=== PATIENT | female | born 1950 | race Caucasian/White ===

== ENCOUNTER → 2018-06-21 | Outpatient (CLI) | payer MEDICARE ==
[~2018-06-21] VITALS: Ht 157.5 cm; Wt 68.0 kg
[~2018-06-21] MED LIST: ACCUNEB0.63 MG/3 IH; ACCUNEB1.25 MG/3 IH; ASPIRIN EC81 M1; ASPIRIN81 M2 PO; BACTRIM DS TAB1 EACH PO; COMBIVENT INH; COZAAR 25 MG TA25 M1 PO; DEXAMETHASONE0.75 MG PO; DUONEB 2.5-0.5 M3 ML INH; E-MYCIN250 MG PO; IBUPROFEN 200200 M1 PO; IRON325; KEFLEX500 M1 PO; LASIX 20 MG TAB20 MG PO; LEVAQUIN 500 M500 M2 PO; LEVAQUIN 500 M500 M4 PO; LISINOPRIL2.5 MG PO; LOPRESSOR25 PO; METOPROLOL SUCC50 MG PO; NEBULIZER MISCELL; NICODERM CQ1 EAC1 TD; NITROGLYCERIN0.4 MG SL; NITROGLYCERIN0.4 MG SUBLING; NOHOMEMEDICATIONS; NORCO 5-325 TA1 EACH PO; PAIN & FEVER325 MG PO; PERCOCET 5-3251 EACH; PERCOCET PO; PHISOHEX148 ML TP; PLAVIX 75 MG TA75 MG PO; PREDNISONE 10 M10 M1 PO; PREDNISONE 10 M10 MG PO; PREDNISONE 20 M20 MG PO; PREDNISONE50 MG PO; PROAIR HFA8.5 GM INH; PROTONIX40 M1 PO; SIMVASTATIN40 MG PO; SINGULAIR 10 MG10 MG PO; TESSALON PERLE100 MG PO; TOPROL XL25 MG PO; TRAZODONE HCL50 MG PO; TUMS PO; TYLENOL325 MG PO; ZOFRAN4 MG PO; ZPAK PO
[2018-06-21 09:41] VITALS: BP 158/71
== END | disposition home or self-care (01) ==
LOC: M.INT 09:12
DX: K55.1 Chronic vascular disorders of intestine (principal); I70.1 Atherosclerosis of renal artery; I11.0 Hypertensive heart disease with heart failure; I25.10 Atherosclerotic heart disease of native coronary artery without angina pectoris; I50.9 Heart failure, unspecified; J44.1 Chronic obstructive pulmonary disease with (acute) exacerbation; F17.210 Nicotine dependence, cigarettes, uncomplicated; Z87.440 Personal history of urinary (tract) infections; Z88.6 Allergy status to analgesic agent; Z79.899 Other long term (current) drug therapy; Z79.82 Long term (current) use of aspirin

== ENCOUNTER 2018-07-04 08:20 | Observation (INO) | payer MEDICARE ==
[2018-07-04] VITALS (10 sets, daily range): BP systolic 91–138; BP diastolic 46–80
[~2018-07-04] VITALS: Ht 157.5 cm; Wt 70.4 kg
[2018-07-04 09:41] LABS: CALCIUM 9.3 mg/dL (8.5-10.1); CREATININE 0.9 mg/dL (0.6-1.3); POTASSIUM 4.1 mmol/L (3.5-5.1)
[2018-07-04 09:45] LABS: ALBUMIN 3.4 g/dL (3.4-5.0); TOTAL BILIRUBIN 0.5 mg/dL (<0.1-1.0); TOTAL PROTEIN 6.6 g/dL (6.4-8.2)
[2018-07-04 10:01] LABS: HEMATOCRIT 46.6 % (37.0-47.0); HEMOGLOBIN 15.5 gm/dL (12.0-15.0); MCH 29.5 pg (26.0-34.0); MCHC 33.3 g/dL (28.0-37.0); MCV 88.7 fL (80.0-100.0); MPV 9.3 fl. (7.2-11.1); RBC 5.26 mil/uL (4.20-5.00); RDW-CV 14.6 % (10.5-14.5); WBC 7.1 thou/uL (4.0-11.0)
[2018-07-04] MEDS ORDERED: LOPRESSOR25 PO (15:37)
[2018-07-04] MEDS ORDERED: XANAX 0.25 MG0.25 MG PO (18:18)
[2018-07-04 18:49] LABS: HEMATOCRIT 42.8 % (37.0-47.0); HEMOGLOBIN 13.9 gm/dL (12.0-15.0)
--- NOTE | 2018-07-04 19:08 | NUR ---
PATIENT ARRIVED FROM IR AT 1730. PATIENT SETTLED TO ROOM. HISTORY, ASSESSMENT AND VITALS COMPLETED AND DOCUMENTED. PATIENT DENIES ANY PAIN. GROIN AND WRIST SITESSOFT, DRY WITH NO BLEEDING NOTED. PATIENT DENIES ANY NAUSEA AND TOLERATING DIET. PATIENT DENIES ANY NEEDS AT THIS TIME. CALL LIGHT WITHIN REACH. WILL CONTINUE TO MONITOR.
[2018-07-05 00:36] LABS: HEMATOCRIT 37.5 % (37.0-47.0); HEMOGLOBIN 12.6 gm/dL (12.0-15.0)
[2018-07-05 05:32] LABS: HEMATOCRIT 36.6 % (37.0-47.0); HEMOGLOBIN 12.2 gm/dL (12.0-15.0)
--- NOTE | 2018-07-05 05:44 | NUR ---
PT SLEPT ON AND OFF THIS SHIFT. VISITORS REMAINED AT BEDSIDE ALL NIGHT. DRESSING SITES REMAINED C/D/I, NO SIGNS OF BLEEDING. NO REPORTS OF PAIN. IV PATENT, FLUIDS INFUSING. WILL CONTINUE WITH PLAN OF CARE.
[2018-07-05 08:00] VITALS: BP 121/77
[2018-07-05 12:25] LABS: HEMATOCRIT 41.4 % (37.0-47.0); HEMOGLOBIN 13.7 gm/dL (12.0-15.0)
[2018-07-05 13:39] VITALS: BP 121/77
--- NOTE | 2018-07-05 14:01 | NUR ---
DISCHARGE NOTE - SON WAS VERY ADAMENT AND IRRITATED THAT DR. MONTANEZ HAS NOT ROUNDED YET. SON ANGERY AND FRUSTATED. REASSURED. INSTRUCTIONS REVIEWED WITH DTR AND PT. NO QUESTIONS. IV REMOVED WITHOUT DIFFICULTY. ALL BELONGINGS SENT C PT.
== END 2018-07-05 14:00 | disposition home or self-care (01) ==
LOC: M.INT 08:20 → M.TBA-ER 17:20 → M.3W 17:20
PROVIDERS: Radiology Diagnostic Radiology; ADMIT Internal Medicine
DX: K55.1 Chronic vascular disorders of intestine (principal); I70.1 Atherosclerosis of renal artery; I25.10 Atherosclerotic heart disease of native coronary artery without angina pectoris; J44.9 Chronic obstructive pulmonary disease, unspecified; I11.0 Hypertensive heart disease with heart failure; I50.9 Heart failure, unspecified; N39.0 Urinary tract infection, site not specified; Z72.0 Tobacco use; R11.10 Vomiting, unspecified; Z79.82 Long term (current) use of aspirin; Z79.899 Other long term (current) drug therapy

== ENCOUNTER 2018-09-07 16:47 | Emergency (ER) | payer MEDICARE ==
[~2018-09-07] VITALS: Ht 157.5 cm; Wt 63.5 kg
[~2018-09-07 16:47] MED LIST changes: +XANAX 0.25 MG0.25 MG PO
[2018-09-07 17:55] LABS: ABSOLUTE BASOPHILS 0.1 thou/uL (0.0-0.2); ABSOLUTE EOSINOPHILS 0.5 thou/uL (0.0-0.7); ABSOLUTE LYMPHOCYTES 2.5 thou/uL (0.8-5.3); ABSOLUTE MONOCYTES 0.7 thou/uL (0.0-1.2); ABSOLUTE NEUTROPHILS 4.5 thou/uL (1.6-8.1); BASOPHILS 1.1 %; EOSINOPHILS 5.6 %; HEMATOCRIT 42.4 % (37.0-47.0); HEMOGLOBIN 14.4 gm/dL (12.0-15.0); LYMPHOCYTES 30.3 %; MCV 88.3 fL (80.0-100.0); MONOCYTES 8.1 %; MPV 8.4 fl. (7.2-11.1); NUCLEATED RBCS 0 /100WBC; PLATELET COUNT* 190 thou/uL (150-400); POLYS 54.9 %; RDW-CV 14.2 % (10.5-14.5); WBC 8.1 thou/uL (4.0-11.0)
[2018-09-07 18:07] LABS: URINE BILIRUBIN NEGATIVE (Negative); URINE BLOOD NEGATIVE (Negative); URINE CLARITY CLEAR; URINE COLOR YELLOW; URINE GLUCOSE-RANDOM NEGATIVE (Negative); URINE KETONES NEGATIVE (Negative); URINE LEUKOCYTES-REFLEX NEGATIVE (Negative); URINE NITRITE-REFLEX NEGATIVE (Negative); URINE PROTEIN NEGATIVE (Negative); URINE UROBILINOGEN 0.2 E.U./dl (0.2-1.0)
[2018-09-07 18:14] LABS: ALBUMIN 3.5 g/dL (3.4-5.0); ALKALINE PHOSPHATASE 79 U/L (46-116); ANION GAP 7 mmol/L (7-16); BUN 17 mg/dL (7-18); CALCIUM 9.1 mg/dL (8.5-10.1); CHLORIDE 102 mmol/L (98-107); CO2 29 mmol/L (21-32); CREATININE 0.9 mg/dL (0.6-1.3); GLUCOSE 104 mg/dL (70-99); POTASSIUM 3.8 mmol/L (3.5-5.1); SGOT 14 U/L (15-37); SGPT 13 U/L (30-65); SODIUM 138 mmol/L (136-145); TOTAL BILIRUBIN 0.2 mg/dL (<0.1-1.0); TOTAL PROTEIN 6.7 g/dL (6.4-8.2); TROPONIN-I LEVEL <0.06 ng/mL (<0.06)
[2018-09-07 20:29] VITALS: BP 149/86
--- NOTE | 2018-09-08 12:14 | EKG ---
[place] [address] ELECTROCARDIOGRAM REPORT Name: SAMANTHANEY Room: [facility]#: [id number] Admission: 09/07/18 Attend Phys: Discharge: 09/07/18 Date of : 46 Report #: [id number] THIS REPORT FOR: //name// 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 : 1950 Requested By: Hayley Forrest Order Number: [id number] MD: Cihto Gould Measurements Intervals [place] Rate: 88 P: 34 GA: 81 QRS: 26 QRSD: 103 T: 70 QT: 373 QTc: 452 Interpretive Statements Sinus rhythm Short GA interval Low voltage, precordial leads Nonspecific T abnormalities, anterior leads Compared to ECG 05/28/2017 03:03:52 Short GA interval now present Low QRS voltage now present T-wave abnormality now present Electronically Signed On 09-08-2018 12:14:43 CDT by Chito Gould [email or web address] <ELECTRONICALLY SIGNED> By: Chito Gould MD, FACC 09/08/18 1214 1714 1714 Chito Gould MD, FAC /EPI
== END 2018-09-07 20:32 | disposition home or self-care (01) ==
LOC: M.ERS 16:47
PROVIDERS: Nurse Practitioner Family
DX: R42 Dizziness and giddiness (principal); I10 Essential (primary) hypertension; F41.9 Anxiety disorder, unspecified; E78.5 Hyperlipidemia, unspecified; J44.9 Chronic obstructive pulmonary disease, unspecified; K21.9 Gastro-esophageal reflux disease without esophagitis; I25.810 Atherosclerosis of coronary artery bypass graft(s) without angina pectoris; F17.210 Nicotine dependence, cigarettes, uncomplicated; Z88.5 Allergy status to narcotic agent

== ENCOUNTER 2018-09-21 00:30 | Emergency (ER) | payer MEDICARE ==
[~2018-09-21] VITALS: Ht 215.9 cm; Wt 65.3 kg
[2018-09-21 01:02] LABS: ABSOLUTE BASOPHILS 0.1 thou/uL (0.0-0.2); ABSOLUTE EOSINOPHILS 0.5 thou/uL (0.0-0.7); ABSOLUTE MONOCYTES 0.7 thou/uL (0.0-1.2); ABSOLUTE NEUTROPHILS 3.8 thou/uL (1.6-8.1); BASOPHILS 0.8 %; EOSINOPHILS 6.6 %; HEMATOCRIT 43.7 % (37.0-47.0); HEMOGLOBIN 14.9 gm/dL (12.0-15.0); MCH 30.2 pg (26.0-34.0); MCV 88.9 fL (80.0-100.0); MONOCYTES 8.8 %; MPV 8.7 fl. (7.2-11.1); NUCLEATED RBCS 0 /100WBC; PLATELET COUNT* 178 thou/uL (150-400); POLYS 46.8 %; RBC 4.92 mil/uL (4.20-5.00); RDW-CV 13.8 % (10.5-14.5); WBC 8.1 thou/uL (4.0-11.0)
[2018-09-21 01:04] LABS: CALCIUM 9.3 mg/dL (8.5-10.1); CREATININE 0.8 mg/dL (0.6-1.3); POTASSIUM 4.3 mmol/L (3.5-5.1)
[2018-09-21 05:39] LABS: URINE BILIRUBIN NEGATIVE (Negative); URINE BLOOD NEGATIVE (Negative); URINE CLARITY CLEAR; URINE COLOR YELLOW; URINE GLUCOSE-RANDOM NEGATIVE (Negative); URINE KETONES NEGATIVE (Negative); URINE LEUKOCYTES-REFLEX NEGATIVE (Negative); URINE NITRITE-REFLEX NEGATIVE (Negative); URINE PROTEIN NEGATIVE (Negative); URINE SPECIFIC GRAVITY <= 1.005 (1.005-1.030); URINE UROBILINOGEN 0.2 E.U./dl (0.2-1.0)
[2018-09-21 06:37] VITALS: BP 110/57
--- NOTE | 2018-09-21 10:50 | EKG ---
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
--- NOTE | 2018-09-21 10:52 | EKG ---
[place] [address] ELECTROCARDIOGRAM REPORT Name: SAMANTHANEY SPEARS Room: [facility]#: [id number] Admission: 09/21/18 Attend Phys: Discharge: 09/21/18 Date of : 46 Report #: [id number] THIS REPORT FOR: //name// [facility] ED Test Date: 2018-09-21 Test Time: 03:42:53 Pat Name: NEY SINGH Department: Room: Gender: F Clinical Specialist Vascular: MARY : 1950 Requested By: Yaz Jo Order Number: [id number] MD: Everett Lindo Measurements Intervals [place] Rate: 69 P: 73 SC: 88 QRS: 54 QRSD: 98 T: 79 QT: 422 QTc: 452 Interpretive Statements Sinus rhythm Short SC interval Borderline T abnormalities, anterior leads Electronically Signed On 09-21-2018 10:52:07 CDT by Everett Lindo [email or web address] <ELECTRONICALLY SIGNED> By: Everett Lindo MD, [facility] 09/21/18 1052 0342 0342 Everett Lindo MD, FACC /EPI
== END 2018-09-21 06:39 | disposition home or self-care (01) ==
LOC: M.ERS 00:30
PROVIDERS: Emergency Medicine
DX: R51 Headache (principal); F17.210 Nicotine dependence, cigarettes, uncomplicated; I10 Essential (primary) hypertension; I25.10 Atherosclerotic heart disease of native coronary artery without angina pectoris; E78.5 Hyperlipidemia, unspecified; K21.9 Gastro-esophageal reflux disease without esophagitis; J44.9 Chronic obstructive pulmonary disease, unspecified; I42.9 Cardiomyopathy, unspecified; F41.9 Anxiety disorder, unspecified; Z88.5 Allergy status to narcotic agent

== ENCOUNTER → 2018-10-01 | Outpatient (CLI) | payer MEDICARE | LOC: M.MRI 07:38 → M.ULTRA 10-04 10:30 → M.MRI 10-04 11:30 | DX: I65.23 Occlusion and stenosis of bilateral carotid arteries (principal); K55.1 Chronic vascular disorders of intestine; Z88.5 Allergy status to narcotic agent ==

== ENCOUNTER → 2018-11-06 | Outpatient (CLI) | payer MEDICARE | LOC: M.MRI 07:46 | DX: I70.0 Atherosclerosis of aorta (principal); K55.1 Chronic vascular disorders of intestine; I70.8 Atherosclerosis of other arteries; M47.816 Spondylosis without myelopathy or radiculopathy, lumbar region ==

== ENCOUNTER → 2018-12-16 | Outpatient (CLI) | payer MEDICARE ==
[~2018-12-16] VITALS: Ht 157.5 cm; Wt 62.6 kg
[~2018-12-16] MED LIST changes: +NORVASC5 MG PO; +PLAVIX 75 MG TA75 M1 PO
[2018-12-16 10:12] VITALS: BP 136/91
== END ==
LOC: M.INT 11-22 10:00
DX: R10.816 Epigastric abdominal tenderness (principal); I51.9 Heart disease, unspecified; F17.210 Nicotine dependence, cigarettes, uncomplicated; Z88.5 Allergy status to narcotic agent; Z79.82 Long term (current) use of aspirin; Z79.899 Other long term (current) drug therapy; Z95.818 Presence of other cardiac implants and grafts

== ENCOUNTER → 2019-01-30 | Outpatient (CLI) | payer MEDICARE ==
[2019-01-30 11:21] LABS: CALCIUM 9.5 mg/dL (8.5-10.1); CREATININE 0.8 mg/dL (0.6-1.3); POTASSIUM 4.1 mmol/L (3.5-5.1); TOTAL BILIRUBIN 0.5 mg/dL (<0.1-1.0); TOTAL PROTEIN 7.1 g/dL (6.4-8.2)
== END ==
LOC: M.LAB 10:30 → M.CT 11:30
PROVIDERS: Family Medicine
DX: K57.30 Diverticulosis of large intestine without perforation or abscess without bleeding (principal); I10 Essential (primary) hypertension; I70.1 Atherosclerosis of renal artery; D35.02 Benign neoplasm of left adrenal gland; D35.01 Benign neoplasm of right adrenal gland; Z90.49 Acquired absence of other specified parts of digestive tract; I77.1 Stricture of artery; Z95.5 Presence of coronary angioplasty implant and graft

== ENCOUNTER 2020-08-27 10:57 | Inpatient (IN) | payer MEDICARE ==
[~2020-08-27] VITALS: Ht 157.5 cm; Wt 68.0 kg
[2020-08-27] VITALS (11 sets, daily range): BP systolic 95–153; BP diastolic 56–96
[~2020-08-27 10:57] MED LIST changes: +LOPRESSOR50 PO
[2020-08-27] MEDS ORDERED: DICYCLOMINE HCL20 MG PO (11:10)
[2020-08-27] MEDS ORDERED: BENZONATATE200 MG PO (11:10)
[2020-08-27 11:30] LABS: ABSOLUTE LYMPHOCYTES 1.5 thou/uL (0.8-5.3); ABSOLUTE MONOCYTES 0.4 thou/uL (0.0-1.2); ABSOLUTE NEUTROPHILS 8.4 thou/uL (1.6-8.1); BASOPHILS 0.4 %; EOSINOPHILS 0.2 %; HEMATOCRIT 50.6 % (37.0-47.0); HEMOGLOBIN 16.9 gm/dL (12.0-15.0); LYMPHOCYTES 14.5 %; MCH 30.6 pg (26.0-34.0); MCHC 33.4 g/dL (28.0-37.0); MCV 91.7 fL (80.0-100.0); MONOCYTES 3.9 %; MPV 8.6 fl. (7.2-11.1); NUCLEATED RBCS 0 /100WBC; PLATELET COUNT* 211 thou/uL (150-400); RBC 5.52 mil/uL (4.20-5.00); RDW-CV 13.4 % (10.5-14.5); WBC 10.3 thou/uL (4.0-11.0)
[2020-08-27 11:42] LABS: APTT 25.1 Seconds (25.0-31.3); INR 0.9; PROTIME 10.1 Seconds (9.20-11.50)
[2020-08-27 11:45] LABS: CALCIUM 9.3 mg/dL (8.5-10.1); CREATININE 0.8 mg/dL (0.6-1.3); POTASSIUM 4.2 mmol/L (3.5-5.1)
[2020-08-27 11:55] LABS: ALBUMIN 3.5 g/dL (3.4-5.0); MAGNESIUM 2.2 mg/dL (1.8-2.4); TOTAL BILIRUBIN 0.3 mg/dL (<0.1-1.0); TOTAL PROTEIN 7.1 g/dL (6.4-8.2)
--- NOTE | 2020-08-27 15:04 | EKG ---
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
--- NOTE | 2020-08-27 20:12 | 2DMMODE ---
[place] [address] 2 D/M-MODE ECHOCARDIOGRAM Name: NEY SINGH Room: [address] IN .[place]ie.#: [id number] Admission: 08/27/20 Attend Phys: Jaz Zhao, Discharge: Date of : 46 Date of Service: 08/27/202011 Report #: [id number] THIS REPORT FOR: cc: Jack Escobar MD, Bruce D. MD Blick,Everett Chery MD [facility] ~ APPROVED REPORT Study performed: 08/27/2020 13:56:24 EXAM: Comprehensive 2D, Doppler, and color-flow Echocardiogram Patient Location: In-Patient Room #: er Status: routine BSA: 1.64 HR: 75 bpm BP: 143/72 mmHg Rhythm: NSR Other Information Study Quality: Good Indications Chest Pain 2D Dimensions IVSd: 11.47 (7-11mm) LVOT Diam: 17.15 (18-24mm) LVDd: 46.84 mm PWd: 8.06 (7-11mm) Ascending Ao: 28.33 (22-36mm) LVDs: 26.43 (25-40mm) Aortic Root: 28.40 mm Volumes Left Atrial Volume (Systole) LA ESV Index: 20.80 mL/m2 Aortic Valve AoV Peak Delonte.: 1.30 m/s AO Peak Gr.: 6.79 mmHg LVOT Max P.45 mmHg AO Mean Gr.: 3.32 mmHg LVOT Mean P.01 mmHg LVOT Max V: 1.05 m/s AO V2 VTI: 24.21 cm LVOT Mean V: 0.65 m/s BETITO (VTI): 2.10 cm2 LVOT V1 VTI: 22.03 [place] [address] 2 D/M-MODE ECHOCARDIOGRAM Name: NEY SINGH Room: [address] ..#: [id number] Admission: 08/27/20 Attend Phys: Jaz Zhao, Discharge: Date of : 46 Date of Service: 08/27/202011 Report #: [id number] Mitral Valve E/A Ratio: 0.96 MV Decel. Time: 256.29 ms MV E Max Delonte.: 1.05 m/s MV PHT: 74.32 ms MVA (PHT): 2.96 cm2 TDI E/Lateral E': 10.50 E/Medial E': 17.50 Medial E' Delonte.: 0.06 m/s Lateral E' Delonte.: 0.10 m/s Pulmonary Valve PV Peak Delonte.: 0.96 m/s PV Peak Gr.: 3.66 mmHg Tricuspid Valve RAP Estimate: 5.00 mmHg TR Peak Gr.: 25.11 mmHg RVSP: 30.00 mmHg PA Pressure: 30.00 mmHg Left Ventricle The left ventricle is normal size. severe hypokinesis noted of the base of the inferior wall There is normal left ventricular wall thickness. Left ventricular systolic function is normal. The left ventricular ejection fraction is within the normal range. LVEF is 55-60%. The left ventricular diastolic function is normal. Right Ventricle The right ventricle is normal size. The right ventricular systolic function is normal. Atria The left atrium size is normal. The right atrium size is normal. Aortic Valve The aortic valve is normal in structure. No aortic regurgitation is present. There is no aortic valvular stenosis. Mitral Valve The mitral valve is normal in structure. Mild mitral annular calcification. Mild mitral regurgitation. No evidence of mitral valve stenosis. Tricuspid Valve The tricuspid valve is [place] [address] 2 D/M-MODE ECHOCARDIOGRAM Name: NEY SINGH Room: [address] [place] [facility]#: [id number] Admission: 08/27/20 Attend Phys: Jaz Zhao, Discharge: Date of : 46 Date of Service: 08/27/202011 Report #: [id number] regurgitation. Borderline pulmonary hypertension. Pulmonic Valve The pulmonary valve is normal in structure. There is no pulmonic valvular regurgitation. Great Vessels The aortic root is normal in size. IVC is normal in size and collapses >50% with inspiration. Pericardium There is no pericardial effusion. <Conclusion> severe hypokinesis noted of the base of the inferior wall LVEF is 55-60%. Mild mitral regurgitation. <ELECTRONICALLY SIGNED> By: Everett Lindo MD, FACC 08/27/202011 11 11 Everett Lindo MD, FACC /INF
[2020-08-28 00:18] VITALS: BP 136/66
[2020-08-28 03:58] LABS: ABSOLUTE EOSINOPHILS 0.1 thou/uL (0.0-0.7); ABSOLUTE LYMPHOCYTES 2.6 thou/uL (0.8-5.3); ABSOLUTE MONOCYTES 0.9 thou/uL (0.0-1.2); ABSOLUTE NEUTROPHILS 6.2 thou/uL (1.6-8.1); BASOPHILS 0.3 %; EOSINOPHILS 1.5 %; HEMATOCRIT 42.1 % (37.0-47.0); LYMPHOCYTES 26.7 %; MCH 30.2 pg (26.0-34.0); MCHC 32.7 g/dL (28.0-37.0); MCV 92.3 fL (80.0-100.0); MONOCYTES 9.1 %; MPV 8.4 fl. (7.2-11.1); NUCLEATED RBCS 0 /100WBC; PLATELET COUNT* 179 thou/uL (150-400); POLYS 62.4 %; RBC 4.56 mil/uL (4.20-5.00); RDW-CV 13.6 % (10.5-14.5); WBC 9.9 thou/uL (4.0-11.0)
[2020-08-28 04:06] LABS: APTT 24.5 Seconds (25.0-31.3); INR 0.9; PROTIME 10.1 Seconds (9.20-11.50)
[2020-08-28 04:08] LABS: CALCIUM 8.9 mg/dL (8.5-10.1); CREATININE 0.8 mg/dL (0.6-1.3); POTASSIUM 4.4 mmol/L (3.5-5.1)
[2020-08-28 04:31] LABS: HEMOGLOBIN 13.8 gm/dL (12.0-15.0)
[2020-08-28 04:38] VITALS: BP 112/43
[2020-08-28 07:43] VITALS: BP 123/57
[2020-08-28] MEDS ORDERED: KEFLEX500 M1 PO (09:45)
[2020-08-28] MEDS ORDERED: PROTONIX40 M4 PO (09:45)
[2020-08-28 10:52] VITALS: BP 123/57
--- NOTE | 2020-08-28 11:33 | CARD ---
[address] [address] CARDIAC CATH REPORT Name: NEY SINGH Room: [address] IN [facility].#: [id number] Admission: 08/27/20 Attend Phys: Jaz Zhao MD Discharge: Date of : 46 Report #: [id number] THIS REPORT FOR: cc: Jack Escobar MD, Bruce D. MD ~ Everett Lindo MD [facility] APPROVED REPORT Study performed: 08/27/2020 14:35:16 Patient Details Patient Status: ED Room #: The patient is a 70 year-old female Event Personnel Everett Lindo Hub Borer, Ellen Cadet RN Real Estate Clerk, Shawn Clark SALESPERSON DRIVER Monitor, Ayla Chen RTR Scrub Procedures Performed Art Access - R femoral artery* Left Heart Cath w/or w/o Coronaries [id number] [facility] Hemostasis w/ Mynx Indication Abnormal ECG, Chest pain Risk Factors Arterial Hypertension, Cerebrovascular DiseasePeripheral Vascular Disease, Hypercholesterolemia, Coronary Artery Disease, Tobacco History () Previous Procedures/Diagnoses Previous CABG Procedure Narrative The patient was brought urgently to the Cardiac Catheterization Laboratory and was prepped and draped in a sterile manner. The right femoral was infiltrated with 2% Lidocaine subcutaneous anesthesia. The right femoral accessed via ultrasound guidance. A [place] 6 FR sheath was inserted into the right femoral artery. Coronary angiography was performed using coronary diagnostic catheters. The right coronary system was accessed and visualized with a JR4 catheter. The left coronary system was accessed and visualized with a JL4 catheter. The left ventricle was accessed and visualized with a PiG Tail catheter. Left ventricular/[place] [address] CARDIAC CATH REPORT Name: NEY SINGH Room: [address] IN [facility]#: [id number] Admission: 08/27/20 Attend Phys: Jaz Zhao MD Discharge: Date of : 46 Report #: [id number] via catheter pullback. Left ventriculogram was performed in MONTANO projection. An aortogram of the ascending aorta was performed. Closure device was deployed with a 6 Fr MynxGrip 6/7F. The patient tolerated the procedure well and there were no complications associated with the procedure. There was no hematoma. In an effort to perform angiogram of the BLAKE, an attempt was made to enter the left subclavian artery but was unsuccessful because of tortuosity of the aortic arch. Effort was made using a MTP catheter and a Wholey wire, but was unable to advance the wire into the subclavian artery. SVG to the RCA and the SVG to the circumflex was visualized using a JR4 catheter. Intraoperative Conscious Sedation Sedation start time: 151 Case end Time: 1601 Fentanyl 75 mcg Fluoro Time: 13.2 minutes Dose: DAP 93453 cGycm2 753 mGy Contrast Type and Amount: Visipaque 160 ml Coronary Angiography The patient's coronary anatomy is co- dominant. [place] Artery Percent Stenosis Grafts (Complete if Previous CABG=Yes: Percent Stenosis) SVG to the RCA appeared chronically occluded proximally. SVG to the second diagonal artery and a sequential jump graft to the second marginal branch of the circumlex appeared widely patent. Unable to enter the left subclavian artery, therefore the BLAKE graft was not visualized. Diagnostic Cath Left Main 0% stenosis LAD appeared chronically occluded after the takeoff of the second diagonal artery. Circumflex 90% ostial stenosis, and 100% mid chronic occlusion. Right Coronary chronic occlusion proximally, and the distal RCA filled by both bridging antegrade collaterals, and well as retrograde collaterals from the left coronary artery. Left Ventriculography The left ventricular ejection fraction is estimated to be 50-55%. Left ventricular wall motion abnormalities are present. There is 1+ mitral insufficiency. Severe hypokinesis of the base of the inferior wall. Aortic root injection showed only one [place] [address] CARDIAC CATH REPORT Name: SAMANTHANEY MINOR Room: [address] IN ..#: [id number] Admission: 08/27/20 Attend Phys: Jaz Zhao MD Discharge: Date of : 46 Report #: [id number] the ascending aorta, and no significant aortic insufficiency. Hemodynamics The aortic pressure is 112/43 mmHg with a mean of 69 mmHg. The left ventricular pressure is 101/10 mmHg with a mean of mmHg. The left ventricular end diastolic pressure is 14 mmHg. There was no gradient across the aortic valve upon pullback. Pullback from the left ventricle to the aorta revealed no gradient across the aortic valve. Conclusion 1. Chronic occlusion of the mid LAD, mid circumflex artery, and the proximal RCA 2. Patent SVG to the diagonal artery and circumflex artery. The SVG to the RCA appeared chronically occluded 3. Unable to enter the left subclavian artery, therefore the BLAKE was not visualized on this study. 4. LVEF 50-55% Recommendations Consider return to the catheterization laboratory in the future in an effort to visualize the BLAKE graft with access from the left radial artery. <ELECTRONICALLY SIGNED> By: Everett Lindo MD, FACC 08/28/20 1133 1133 1133Drowena Lindo MD, FACC /INF
[2020-08-28 11:37] VITALS: BP 97/49
--- NOTE | 2020-08-30 08:24 | CON ---
[facility] [address] [place] [address] CONSULTATION Name: NEY SINGH Room: [address] M.R.#: [id number] Admission: 08/27/20 Attend Phys: Jaz Zhao MD Discharge: 08/28/20 Date of : 46 Report #: [id number] THIS REPORT FOR: cc: Jack Escobar MD, Bruce D. MD ~ Everett Lindo MD [facility] DATE OF SERVICE: 08/27/2020 CARDIOLOGY CONSULTATION HISTORY OF PRESENT ILLNESS: The patient is a 70-year-old single white female who I was asked to see in the Emergency Room today after she complained of chest pain. The patient has an extensive past medical history. She apparently had triple vessel bypass surgery at [facility] in 2002. She has never required stenting. She does not know when her last stress test was. She also has a history of mesenteric ischemia and had a previous mesenteric artery stent placed by Interventional Radiology in the past. She continues to have occasional nausea. She is not very active at this time. However, she has had no recent chest pain until last night, she had an episode of chest pain in the last few minutes, resolved. Today, she again had an episode of chest pain, took a blood pressure is high. Her daughter brought her to the Emergency Room. She is admitted for further evaluation and treatment. She denied the pain related to food. She has had no recent fever or cough. She has had no bleeding. There is no radiation of the pain. She does get short of breath if she exerts herself. She has nebulizer treatments at home. She notes occasional episodes when her heart will flutter, but she has had no syncope. PAST MEDICAL HISTORY: Otherwise, she has had previous cholecystectomy, ankle surgery, shoulder surgery, wrist surgery. She has a history of hypertension, hyperlipidemia. No diabetes. MEDICATIONS: Include Xanax, Plavix, metoprolol, simvastatin, Desyrel. ALLERGIES: SHE HAS A PREVIOUS INTOLERANCE TO CODEINE. FAMILY HISTORY: Unknown. SOCIAL HISTORY: She is single, lives by herself in [place], [place]. Smokes half pack of cigarettes a day. No alcohol abuse. REVIEW OF SYSTEMS: She has had no history of stroke. She does have a history of carotid stenosis, previously was 70%. No history of GI bleeding, liver disease, kidney disease, cancer, psychiatric illness, [place] [address] CONSULTATION Name: NEY SINGH Room: [address]#: [id number] Admission: 08/27/20 Attend Phys: Jaz Zhao MD Discharge: 08/28/20 Date of : 46 Report #: [id number] PHYSICAL EXAMINATION: GENERAL: Revealed an elderly female, appeared in no acute distress. VITAL SIGNS: She had a blood pressure of 130/70, pulse 70. She is afebrile. HEENT: She was anicteric. Conjunctivae pink. Mucous membranes moist. NECK: Veins do not appear distended. No carotid bruits. Neck supple. CHEST: Revealed expiratory wheezes. CARDIOVASCULAR: Regular rate and rhythm without murmur. ABDOMEN: Soft. EXTREMITIES: Had no edema. Posterior tibial pulse 2+, dorsalis pedis pulse 2+. SKIN: Cool and dry. NEUROLOGIC: Nonfocal. IMAGING STUDIES: Her workup in the Emergency Room, her EKG showed sinus rhythm with nonspecific ST-segment changes. She had a portable chest x-ray that showed normal heart size, clear lung oscar. Carotid Doppler study in 2019 showed moderate bilateral plaque, no high-grade stenosis. LABORATORY WORK: Sodium 141, creatinine 0.8. Troponin 0.06. BNP 2955. Her white blood cell count 10.3, hemoglobin 16.9. Her COVID stat antigen test was negative. IMPRESSION AND RECOMMENDATIONS: 1. Unstable angina. Recommend cardiac catheterization. 2. Hypertension. The patient is on a calcium shaquille and beta shaquille. She is no longer on an ARB. 3. Hyperlipidemia. The patient is on a statin drug. 4. Tobacco abuse. 5. Chronic obstructive pulmonary disease. 6. History of anxiety disorder. 7. Previous mesenteric ischemia. The patient has a previous mesenteric stents. 8. History of carotid stenosis. Asymptomatic. <ELECTRONICALLY SIGNED> By: Everett Lindo MD, [facility] 08/30/20 0824 1453 1615Dajess Lindo MD, FAC /nt
== END 2020-08-28 13:32 | disposition home or self-care (01) | DRG 392 ==
LOC: M.ERS 10:57 → M.TBA-ER 12:31 → M.2W 12:31
PROVIDERS: Emergency Medicine Emergency Medical Services; Internal Medicine Cardiovascular Disease; ADMIT Internal Medicine; ATTEND Internal Medicine
PROC: B211YZZ Fluoroscopy of Multiple Coronary Arteries using Other Contrast (ICD-10-PCS; principal; 2020-08-27)
PROC: B213YZZ Fluoroscopy of Multiple Coronary Artery Bypass Grafts using Other Contrast (ICD-10-PCS; principal; 2020-08-27)
PROC: 4A023N7 Measurement of Cardiac Sampling and Pressure, Left Heart, Percutaneous Approach (ICD-10-PCS; principal; 2020-08-27)
PROC: B310YZZ Fluoroscopy of Thoracic Aorta using Other Contrast (ICD-10-PCS; principal; 2020-08-27)
PROC: B215YZZ Fluoroscopy of Left Heart using Other Contrast (ICD-10-PCS; principal; 2020-08-27)
DX: K21.9 Gastro-esophageal reflux disease without esophagitis (principal); F41.9 Anxiety disorder, unspecified; F17.210 Nicotine dependence, cigarettes, uncomplicated; I10 Essential (primary) hypertension; J44.9 Chronic obstructive pulmonary disease, unspecified; E78.5 Hyperlipidemia, unspecified; Z20.822 Contact with and (suspected) exposure to COVID-19; I25.2 Old myocardial infarction; Z79.01 Long term (current) use of anticoagulants; Z95.1 Presence of aortocoronary bypass graft; Z79.899 Other long term (current) drug therapy; Z88.5 Allergy status to narcotic agent; Z90.49 Acquired absence of other specified parts of digestive tract; I25.10 Atherosclerotic heart disease of native coronary artery without angina pectoris